=== PATIENT | female | born 1970 | race Caucasian/White ===

== ENCOUNTER → 2017-10-24 | Outpatient (CLI) | payer MEDICARE, OTHER ==
[~2017-10-24] MED LIST: ACET-812 PO; BISO1TAB37 PO; CELE-193 PO; ESZO2TAB PO; FERR325C PO; GABA-581 PO; INSU100C4 SQ; INSU100V12 SQ; NITR0.4T51 SL; OMEP40CA37 PO; RISP1TAB3 PO; ROSU20TA PO; SERT100T PO; TIZA4TAB11 PO
== END ==
LOC: RAD 08:00
DX: M50.323 Other cervical disc degeneration at C6-C7 level (principal); M48.02 Spinal stenosis, cervical region; M51.37 Other intervertebral disc degeneration, lumbosacral region; M48.061 Spinal stenosis, lumbar region without neurogenic claudication; I10 Essential (primary) hypertension; E11.9 Type 2 diabetes mellitus without complications; Z79.891 Long term (current) use of opiate analgesic
CPT/HCPCS: 72141; 72146; 72148

== ENCOUNTER 2019-07-23 12:38 | Outpatient (CLI) | payer MEDICARE ==
[~2019-07-23 12:38] MED LIST changes: +OMEP40CA13 PO; -OMEP40CA37 PO; -ROSU20TA PO; +ROSU20TA2 PO
== END 2019-07-23 23:59 | disposition home or self-care (01) ==
LOC: VAS 12:38
PROVIDERS: ATTEND Family Medicine
DX: M79.89 Other specified soft tissue disorders (principal)
CPT/HCPCS: 93971